=== PATIENT | male | born 1970 | race Caucasian/White ===

== ENCOUNTER 2016-06-20 07:22 | Emergency (ER) | payer OTHER ==
[~2016-06-20] VITALS: Wt 82.6 kg
[2016-06-20] MEDS ORDERED: KETOROLAC 30 MG INJ IV STA (08:23)
[2016-06-20] MEDS ORDERED: SOD CHLORIDE 0.9% 1,000 ML IV STA (08:23)
[2016-06-20] MEDS ORDERED: CLINDAMYCIN 600 MG/D5W (PMX) 50 ML IVPB SCH (08:30)
[2016-06-20] MEDS ORDERED: DEXAMETHASONE 10 MG/ML 1 ML INJ IV ONE (08:30)
[2016-06-20] MEDS ORDERED: NAPR-260 PO (10:01)
[2016-06-20] MEDS ORDERED: PRED20TA PO (10:01)
[2016-06-20] MEDS ORDERED: CLIN-73 PO (10:01)
--- NOTE | 2016-06-20 11:25 | ERD ---
DATE OF SERVICE: 06/20/2016 HISTORY OF PRESENT ILLNESS: The patient is a 45-year-old male complaining of right-sided sore throa t for the last 2 days. Patient states he has a history of peritonsillar abscess and surgical draina ge in the past but stated that his pain started and wanted to come in and have it evaluated sooner t farris later. He has had a fever for the last 2 days. He has not taken any medications for his sympto ms. He has a mild runny nose and mild dry cough. Has nausea but no vomiting, no headaches. PAST MEDICAL HISTORY: Denies. ALLERGIES: DENIES ALLERGIES TO MEDICATION. SURGICAL HISTORY: Had a peritonsillar abscess drained. HOSPITALIZATIONS: Abscess drained. REVIEW OF SYSTEMS: A 12-point review of systems was done. Refer to HPI for positives, all other sy stems negative. PHYSICAL EXAMINATION: VITAL SIGNS: Temperature is 100.1, pulse 95, blood pressure is 150/71, respiratory 20, O2 saturatio n 97% on room air. Pain intensity 9/10. GENERAL: The patient is well-appearing, well-nourished, no acute distress. HEENT: The patient has erythema with questionable fullness noted to the right posterior oropharynx. The patient's left posterior oropharynx also has some erythema and there is no exudate noted on th e tonsils. Patient is tolerating oral secretions without difficulty. No stridor, no hot potato erin th. Mild cervical lymphadenopathy. No pain with neck rotation. NECK: C-spine is soft and supple. There is no meningismus. There is no cervical lymphadenopathy. No JVD. No bruits. No goiter. CHEST: Clear to auscultation bilaterally. There are no rales, wheezes or rhonchi. HEART: Regular rate and rhythm. No murmurs, clicks, rubs or gallops. No S3 or S4. SKIN: There is no apparent rash or petechia. The skin is warm and dry. EMERGENCY ROOM COURSE: The patient was given IV clindamycin, IV Decadron, as well as a liter of nor mal saline and Toradol. DIAGNOSIS: Sore throat, possible peritonsillar. MEDICAL DECISION MAKING: I have low suspicion for respiratory distress or hypoxia. There does not appear to be narrowing of the airway, the patient may have early stages of peritonsillar; however, I did not feel that there is indication for surgical drainage at this time as there is only questiona ble fullness to the posterior oropharynx. Patient will be trialed on outpatient oral antibiotics an d given strict ER precautions to return within the next day or two for close evaluation. The john t on reevaluation stated his symptoms had improved with medication and he will continue taking oral antibiotics at home. I have low suspicion for retropharyngeal abscess. Patient does not have deep space neck pain. Low suspicion for meningitis or sepsis. DISCHARGE: The patient is discharged stable. Patient is given a prescription for clindamycin, pred nisone and naproxen and told to return within the next 2 days. Patient was told to return sooner if he develops worsening symptoms as there may be indication for surgical drainage at that time. Kayy ent understood and complied. All other questions answered at time of discharge. Discharge summary given at the time of departure. Patient understood and complied with plan. Dictated By: KIYA OVALLES PA for FIDELINA ROMEO/HOA Conf#: [id number] DID#: [id number]
== END 2016-06-20 10:25 | disposition home or self-care (01) ==
LOC: FTE 07:22
DX: J02.9 Acute pharyngitis, unspecified (principal)
CPT/HCPCS: 96374; 96375; J1100; J1885; J7030; Z7502; Z7610